=== PATIENT | female | born 1960 | race Caucasian/White ===

== ENCOUNTER 2025-10-21 11:45 | Emergency (ER) | payer SELFPAY ==
[~2025-10-21] VITALS: Ht 160 cm; Wt 70.0 kg
[2025-10-21 11:47] VITALS: TEMP 98.9; O2SAT 98
[2025-10-21 15:26] LABS: BASOPHILS % 0.2 % (0.0-2.0); EOSINOPHILS % 0.7 % (0.0-5.0); HEMATOCRIT. 43.8 % (36.0-48.0); HEMOGLOBIN. 14.4 g/dL (12.0-16.0); LYMPHOCYTES % 25.1 % (20.0-50.0); MEAN PLATELET VOLUME 8.6 fl (7.4-10.4); MONOCYTES % 5.6 % (2.0-8.0); NEUTROPHILS % 68.4 % (40.0-76.0); PLATELET 272 x1000/uL (130-400); RED BLOOD CELL COUNT 4.89 mill/uL (4.2-5.4); RED CELL DISTRIBUTION WIDTH 14.9 % (11.6-14.6)
[2025-10-21] MEDS: ACETAMINOPHEN 325MG TABLET PO ONE (15:28)
[2025-10-21 15:38] LABS: CREATININE 1.0 mg/dL (0.6-1.0); UREA NITROGEN BLOOD 10 mg/dL (9-23)
[2025-10-21 15:40] LABS: ASPARTATE AMINOTRANSFERASE 18 IU/L (<34); BILIRUBIN DIRECT 0.2 mg/dL (<=3.0); BILIRUBIN TOTAL 0.5 mg/dL (0.1-1.0); PROTEIN TOTAL 7.5 g/dL (6.0-8.3)
[2025-10-21] MEDS ORDERED: TOPUD MT (17:04)
[2025-10-21 17:18] VITALS: BP 170/78; PULSE 63; RESP 15; O2SAT 100
== END 2025-10-21 17:20 | disposition home or self-care (01) ==
LOC: ER 11:45
DX: K80.70 Calculus of gallbladder and bile duct without cholecystitis without obstruction (principal); R10.84 Generalized abdominal pain
CPT/HCPCS: 36415; 76705; 80048; 80076; 85025; 99284